=== PATIENT | male | born 1985 | race Caucasian/White ===

== ENCOUNTER 2017-01-11 09:08 | Emergency (ER) | payer OTHER ==
[2017-01-11] MEDS ORDERED: PREDNISONE 20 MG TABLET ONE (10:26)
[2017-01-11] MEDS ORDERED: IBUPROFEN 800 MG TABLET ONE (10:26)
--- NOTE | 2017-01-11 11:04 | RAD ---
LUMBAR SPINE ROUTINE 2 3 VWS COMPARISON: None. HISTORY: Long history of back pain from a injury. Today pain has exacerbated. FINDINGS: Views: Lumbar spine AP and lateral. AP L5-S1 spot. Vertebral alignment: Normal. Vertebral bodies: Normal. Intervertebral discs: Normal. Pedicles: Normal. Facet joints and posterior arches: Normal. Sacroiliac joints: Normal. Soft tissues: Normal. IMPRESSION: 1. Normal study.
== END 2017-01-11 11:00 | disposition home or self-care (01) ==
LOC: ED 09:08
DX: M54.5 Low back pain (principal); F17.210 Nicotine dependence, cigarettes, uncomplicated
CPT/HCPCS: 72100; 99283 ×2; A9270; J7512